=== PATIENT | female | born 1975 | race American Indian/Alaskan Native ===

== ENCOUNTER 2016-11-21 18:09 | Inpatient (IN) | payer BC ==
[2016-11-21 18:10] VITALS: BMI 20.5
[2016-11-21] MEDS ORDERED: Sodium Chloride 0.9% 1,000 ML IV STA (19:10)
[2016-11-21 20:07] LABS: HEMATOCRIT 29.8 % (36.0-48.0); MEAN CELL VOLUME 74.5 fL (80.0-105.0); MEAN CORPUSCULAR HEMOGLOBIN 25.3 pg (25.0-35.0); MEAN CORPUSCULAR HGB CONC 33.9 g/dl (31.0-37.0); MEAN PLATELET VOLUME 11.3 fl (7.0-11.0); PLATELET COUNT 159 10^3/uL (120.0-450.0); RED CELL DISTRIBUTION WIDTH 16.9 % (11.5-14.5)
[2016-11-21 20:12] LABS: ALB/GLOB RATIO 0.9 (1.1-1.8); ALKALINE PHOSPHATASE 64 U/L (38-133); ALT/SGPT 29 U/L (7-56); AST/SGOT 51 U/L (15-39); BILIRUBIN,TOTAL 0.5 mg/dL (0.2-1.3); BLOOD UREA NITROGEN 13 mg/dL (7-21); CARBON DIOXIDE 21 mmol/L (21-33); CHLORIDE 105 mmol/L (98-107); GFR AFRICAN-AMERICAN 55; GLUCOSE,RANDOM 93 mg/dL (70-110); POTASSIUM 3.7 mmol/L (3.6-5.0); SODIUM 139 mmol/L (132-148); TOTAL PROTEIN 8.4 g/dL (5.8-8.3)
[2016-11-21 20:17] LABS: ADD MANUAL DIFF? YES; WHITE BLOOD COUNT 2.4 10^3/ul (4.5-11.0)
[2016-11-21 20:19] LABS: CALCIUM 4.8 mg/dL (8.4-10.5)
[2016-11-21 20:48] LABS: BAND 4 % (0-2); EOSINOPHIL 2 % (0.0-3.0); NEUTROPHIL 36 % (50.0-70.0); PLATELET ESTIMATE NORMAL (NORMAL)
[2016-11-21 21:04] LABS: URINE BILIRUBIN NEGATIVE (NEGATIVE); URINE BLOOD NEGATIVE (NEGATIVE); URINE GLUCOSE (UA) NEGATIVE (NEGATIVE); URINE KETONE NEGATIVE (NEGATIVE); URINE LEUKOCYTE ESTERASE NEGATIVE Leu/uL (NEGATIVE); URINE PROTEIN 30 mg/dL (<30 mg/dL); URINE UROBILINOGEN 0.2 E.U./dL (<1 E.U./dL)
[2016-11-21 21:06] LABS: MAGNESIUM 1.7 mg/dL (1.7-2.2); PHOSPHOROUS 1.4 mg/dL (2.5-4.5); TROPONIN I < 0.01 ng/mL
[2016-11-21] MEDS ORDERED: Magnesium Sulfate 2 GM in Sodium Chloride 0.9% 100 ML IVPB ONE (21:08)
[2016-11-21] MEDS ORDERED: Potassium & Sodium Phosphate PO STA (21:08)
[2016-11-21 21:16] LABS: URINE APPEARANCE CLEAR (CLEAR); URINE COLOR YELLOW (YELLOW)
--- NOTE | 2016-11-21 21:21 | ED PDOC ---
Arrival/HPI - General Chief Complaint: Weakness/Neurological Deficit Time Seen by Provider: 11/21/16 19:09 Historian: Patient - History of Present Illness Narrative History of Present Illness (Text): 11/21/16 19:09 A 41 year old female, whose past medical history includes HIV with unknown cd4 count or viral load, and noncompliant HAART, presents to the emergency department complaining of bilateral hand spasms and diffuse body aches approximately 1 hour prior to arrival. Patient denies any fever, chills, nausea , vomiting, diarrhea, abdominal pain, urinary symptoms, chest pain, shortness of breath, cough or any other complaints. Patient denies any recent travel or changes in her medication. [place] [facility] [place] Time/Duration: 1 hour Symptom Course: Unchanged Quality: Other Context: Other Past Medical History - Provider Review Nursing Documentation Reviewed: Yes - Past History Past History: No Previous - Infectious Disease Hx of Infectious Diseases: None - Tetanus Immunization Tetanus Immunization: Up to Date, Unknown - Past Medical History Past Medical History: No Previous - Cardiac Hx Cardiac Disorders: No - Pulmonary Hx Respiratory Disorders: No - Neurological Hx Neurological Disorder: No - HEENT Hx HEENT Disorder: No - Renal Hx Renal Disorder: No - Endocrine/Metabolic Hx Endocrine Disorders: No - Hematological/Oncological Hx Blood Disorders: Yes - Integumentary Hx Dermatological Disorder: No - Musculoskeletal/Rheumatological Hx Musculoskeletal Disorders: No - Gastrointestinal Hx Gastrointestinal Disorders: No - Genitourinary/Gynecological Hx Genitourinary Disorders: No - Psychiatric Hx Psychophysiologic Disorder: No Hx Depression: No Hx Emotional Abuse: No Hx Physical Abuse: No Hx Substance Use: No - Past Surgical History Past Surgical History: No Previous - Surgical History Hx Section: Yes - Anesthesia Hx Anesthesia: No Hx Anesthesia Reactions: No - Suicidal Assessment Feels Threatened In Home Enviroment: No Family/Social History - Physician Review Nursing Documentation Reviewed: Yes Family/Social History: No Known Family HX Smoking Status: Never Smoked Hx Alcohol Use: No Hx Substance Use: No Hx Substance Use Treatment: No Allergies/Home Meds Allergies/Adverse Reactions: Allergies No Known Allergies Allergy (Verified 11/21/16 18:24) Home Medications: Home Meds Medication Instructions Recorded Confirmed Azithromycin [Zithromax] 600 mg PO .WEEKLY 11/21/16 11/21/16 Lopinavir/Ritonavir [Kaletra 11/21/16 100-25 mg Tablet] Review of Systems - Physician Review All systems were reviewed & negative as marked: Yes - Review of Systems Constitutional: absent: Fevers, Night Sweats Respiratory: absent: SOB, Cough Cardiovascular: absent: Chest Pain Gastrointestinal: absent: Abdominal Pain, Diarrhea, Nausea, Vomiting Genitourinary Female: absent: Dysuria, Frequency, Hematuria, Urine Output Changes Musculoskeletal: Myalgias (Diffuse body aches), Other (Bilateral hand spasms) Physical Exam Vital Signs Reviewed: Yes Vital Signs Temp Pulse Resp BP Pulse Ox 11/21/16 21:00 85 16 116/79 100 11/21/16 20:00 86 16 125/79 100 11/21/16 18:26 99.5 F 97 H 20 132/100 H 98 Temperature: Afebrile Blood Pressure: Hypertensive Pulse: Tachycardic Respiratory Rate: Normal Appearance: Positive for: Well-Appearing, Non-Toxic, Comfortable Pain Distress: None Mental Status: Positive for: Alert and Oriented X 3 - Systems Exam Head: Present: Atraumatic, Normocephalic Pupils: Present: PERRL Extroacular Muscles: Present: EOMI Conjunctiva: Present: Normal Mouth: Present: Moist Mucous Membranes, Other (Subjective numbness around mouth) Neck: Present: Normal Range of Motion Respiratory/Chest: Present: Clear to Auscultation, Good Air Exchange. No: Respiratory Distress, Accessory Muscle Use Cardiovascular: Present: Regular Rate and Rhythm, Normal S1, S2. No: Murmurs Abdomen: Present: Normal Bowel Sounds. No: Tenderness, Distention, Peritoneal Signs Back: Present: Normal Inspection Upper Extremity: Present: Normal ROM, NORMAL PULSES, Neurovascularly Intact, Other (Carpopedal spasms in bilateral hands). No: Cyanosis, Edema, Tenderness, Swelling, Erythema, Temperature Abnormalties, Deformity Lower Extremity: Present: Normal Inspection. No: Edema Neurological: Present: GCS=15, CN II-XII Intact, Speech Normal Skin: Present: Warm, Dry, Normal Color. No: Rashes Psychiatric: Present: Alert, Oriented x 3, Normal Insight, Normal Concentration Medical Decision Making ED Course and Treatment: 11/21/16 19:09 Impression: A 41 year old female with bilateral hand spasms and diffuse body aches. Plan: -- EKG -- Labs -- Urinalysis -- Ativan, Calcium gluconate, Magnesium sulfate, Neutra-Phos, IV fluids and Toradol -- Reassess and disposition Progress Notes: EKG shows NSR at 107 BPM with normal axis, QTc 512, IA interval normal. Interpreted by me. 11/21/16 21:00 Patient resting comfortably, in no acute distress. - Lab Interpretations Lab Results: 11/21/16 19:20 11/21/16 19:20 Lab Results 11/21/16 20:55: Ur Random Sodium 53, Ur Random Potassium 15.9 11/21/16 20:00: Urine Color Yellow, Urine Appearance Clear, Urine pH 6.0, Ur Specific [place] 1.010, Urine Protein 30 H, Urine Glucose (UA) Negative, Urine Ketones Negative, Urine Blood Negative, Urine Nitrate Negative, Urine Bilirubin Negative, Urine Urobilinogen 0.2, Ur Leukocyte Esterase Negative, Urine RBC 0 - 2, Urine WBC 1 - 3, Ur Epithelial Cells 1 - 3, Urine Bacteria Mod 11/21/16 19:20: Sodium 139, Potassium 3.7, Chloride 105, Carbon Dioxide 21, Anion Gap 17, BUN 13, Creatinine 1.3, Est GFR ( Amer) 55, Est GFR (Non- Af Amer) 45, Random Glucose 93, Calcium 4.8 L*, Phosphorus 1.4 L*, Magnesium 1.7 , Total Bilirubin 0.5, AST 51 H, ALT 29, Alkaline Phosphatase 64, Total Creatine Kinase 486 H, CK-MB (CK-2) 3.7 H, CK-MB (CK-2) % Cancelled, Troponin I < 0.01, Total Protein 8.4 H, Albumin 3.9, Globulin 4.5, Albumin/Globulin Ratio 0.9 L 11/21/16 19:20: WBC 2.4 L* D, RBC 4.00, Hgb 10.1 L, Hct 29.8 L, MCV 74.5 L, MCH 25.3, MCHC 33.9, RDW 16.9 H, Plt Count 159, MPV 11.3 H, Neutrophils % (Manual) 36 L, Band Neutrophils % 4 H, Lymphocytes % (Manual) 53 H, Monocytes % (Manual) 5, Eosinophils % (Manual) 2, Platelet Evaluation Normal I have reviewed the lab results: Yes - Medication Orders Current Medication Orders: Discontinued Medications Sodium Chloride (Sodium Chloride 0.9%) 1,000 mls @ 999 mls/hr IV .Q1H1M STA Stop: 11/21/16 20:10 Last Admin: 11/21/16 19:43 Dose: 999 mls/hr Calcium Gluconate 1,000 mg/ (Sodium Chloride) 110 mls @ 110 mls/hr IVPB ONCE ONE Stop: 11/21/16 21:53 Last Admin: 11/21/16 21:29 Dose: 110 mls/hr Comments: administered IV over 30 minutes as per verbal MD order Magnesium Sulfate 2 gm/ Sodium (Chloride) 104 mls @ 102 mls/hr IVPB ONCE ONE Stop: 11/21/16 22:09 Last Admin: 11/21/16 21:37 Dose: 102 mls/hr Ketorolac Tromethamine (Toradol) 30 mg IVP STAT STA Stop: 11/21/16 19:10 Last Admin: 11/21/16 20:04 Dose: 30 mg Re-Assess: MARK Pain Assessment Document 11/21/16 21:04 YP (Rec: 11/21/16 21:[address] [id number] Pain Reassessment Is this a pain reassessment? Yes Sleep Is patient sleeping during reassessment? No Presence of Pain Presence of Pain No Lorazepam (Ativan) 1 mg IVP STAT STA PRN Reason: Protocol Stop: 11/21/16 19:10 Last Admin: 11/21/16 20:04 Dose: 1 mg Potassium Phos/Sodium Phos (Neutra-Phos) 1 pkt PO STAT STA Stop: 11/21/16 21:09 Last Admin: 11/21/16 21:38 Dose: 1 pkt - Scribe Statement The provider has reviewed the documentation as recorded by the Davidibshayy Moralez Provider Scribe Attestation: All medical record entries made by the Scribe were at my direction and personally dictated by me. I have reviewed the chart and agree that the record accurately reflects my personal performance of the history, physical exam, medical decision making, and the department course for this patient. I have also personally directed, reviewed, and agree with the discharge instructions and disposition. Disposition/Present on Arrival - Present on Arrival Any Indicators Present on Arrival: No History of DVT/PE: No History of Uncontrolled Diabetes: No Urinary Catheter: No History of Decub. Ulcer: No History Surgical Site Infection Following: None - Disposition Have Diagnosis and Disposition been Completed?: Yes Diagnosis: Hypocalcemia, Hypophosphatemia, HIV (human immunodeficiency virus infection) Disposition: HOSPITALIZED Disposition Time: 21:45 Condition: FAIR
[2016-11-21 21:49] LABS: URINE BACTERIA MOD (NEG); URINE RBC 0 - 2 /hpf (0-2)
[2016-11-22] MEDS: Calcium Gluconate 1,000 MG in Sodium Chloride 0.45% 1,000 ML IV SCH ×2 (01:14→20:45)
--- NOTE | 2016-11-22 02:23 | CON ---
DATE: 11/21/2016 LOCATION: Room 265. HISTORY OF PRESENT ILLNESS: This is a 41-year-old female with known HIV disease and presenting here with sudden onset of generalized body weakness with supervening bilateral upper and lower extremity s pasms and polymyalgias and was evaluated to have symptomatic hypocalcemia and is now being referred f or endocrine evaluation and management. PAST MEDICAL HISTORY: As mentioned above, history of HIV disease, previously on antiretroviral medic ation, but apparently was lost to medical followup with no recent lab testing or medical checkups. FAMILY HISTORY: Positive for diabetes and hypertension. SOCIAL HISTORY: The patient has supportive family. No known substance use. REVIEW OF SYSTEMS: As mentioned above, admits to generalized body weakness with episodic dizziness a nd lightheadedness, worse on the day of admission. Also, admits to bifrontal headaches and upper and lower extremity paresthesias with supervening spasms, worse in both hands and forearms as noted. Al so, admits to diffuse polymyalgias with painful lower extremity paresthesias, again, worse in the las t few days prior to admission. No chest pains or palpitations or PNDs. Also, admits to sudden onset of shortness of breath, just on the day of admission. Her oral intake is variable with nausea, dysp epsia and habitual constipation. PHYSICAL EXAMINATION: GENERAL: This is an average built female in no apparent distress. VITAL SIGNS: Blood pressure 140/80, pulse of 70 beats per minute and regular, temperature 98, respir ations 20. Height is 5 feet 4 inches, weight is 120 pounds. HEENT: Head normocephalic. Eyes anicteric with pink conjunctivae. Fundoscopy not possible at this time. Ears, nose and throat otherwise normal. NECK: Supple. Thyroid gland is normal size. No carotid bruits or any cervical adenopathy. CARDIOPULMONARY: Revealed an adynamic precordium. S1, S2 is rapid and regular. LUNGS: Show scattered rhonchi. ABDOMEN: Flat, soft with positive bowel sounds. EXTREMITIES: No peripheral edema. Pulses are +2 bilaterally. NEUROLOGIC: There is also a positive Chvostek's sign noted. LABORATORY DATA: Chemistry showed a BUN of 13, sodium 139, potassium 3.7, chloride 105, CO2 of 21, g lucose 93 and creatinine 1.3. Calcium is 4.8 with a phosphorus of 1.4, magnesium of 1.7 and albumin of 3.9. ASSESSMENT: This is a 41-year-old female with symptomatic hypocalcemia and associated constitutional manifestations with neuromuscular irritability and carpopedal spasms and associated EKG findings of the prolonged QT interval as noted in the Emergency Room and is now being referred for endocrine eval uation and management. The possibility of whether we are dealing with a parathyroid versus non-parat hyroid etiology has to be ascertained at this time. There is no prior surgical resection noted histo rically otherwise. The possibility of an autoimmune polyglandular syndrome is quite remote, as the p atalbert has had no prior historical manifestations otherwise. PLAN OF MANAGEMENT: We will continue the calcium gluconate infusion as as fluids with half nor mal saline at 500 mL containing 1 amp of calcium gluconate to run at 100 mL per hour as ordered start ing tonight. We will readjust the IV fluids depending on the serial calcium and magnesium and phosph orus levels to be obtained. The baseline hormonal profile will be obtained at this time with a parat hyroid intact level and an ionized calcium, serum phosphorus and magnesium levels. A TSH and calcito berlin level will also be sent out. We will follow and advise accordingly. Lorrie Fernandes MD cc: [id number] TT: 11/22/2016 02:23:21 Confirmation # [id number] Dictation # [id number]
--- NOTE | 2016-11-22 04:50 | CP.PCM.HP ---
<Roscoe Juárez - Last Filed: 11/22/16 04:45> History of Present Illness - History of Present Illness History of Present Illness: Roscoe Juárez D.O. PGY-1, Internal Medicine Resident, Night Float Admission CC: tingling around mouth, hands, and feet for 1 day 41 year old female with a PMH of HIV on ART medication but not compliant who [place] [facility] [place] with complaints of tingling around her mouth, hands , and feet. Patient is seen with at bedside. Patient states that she was working earlier today and began to have symptoms first in the feet, then it started to spread. Patient denies ever having this again but states that lately she has complained of some tingling and numbness in her extremities.. Patient felt numbness and tingling all over and it went up to her head and her mouth. Patient states that she felt like she couldn't open her eyes and her hands were clamped down in a point. Denies any dizziness, diarrhea , constipation, dysuria, palpitations, shortness of breath, headache, weakness, or any other symptoms. Patient did not note any alleviating or aggravating factors. PMD: Dr. Silva PMH: as above PSH: 2 C-sections SH: denies smoking, alcohol, or drug use, works at the [employer] FH: denies Meds: reviewed but not complete, patient will have family bring full list Allergies: NKA Present on Admission - Present on Admission Any Indicators Present on Admission: No Review of Systems - Constitutional Constitutional: absent: Anorexia, Chills - EENT Eyes: absent: Blind Spots, Blurred Vision Ears: absent: Decreased Hearing, Ear Discharge Nose/Mouth/Throat: absent: Epistaxis, Nasal Congestion - Cardiovascular Cardiovascular: absent: Chest Pain, Diaphoresis, Leg Edema - Respiratory Respiratory: absent: Cough, Dyspnea - Gastrointestinal Gastrointestinal: absent: Abdominal Pain, Nausea, Vomiting - Genitourinary Genitourinary: absent: Dysuria, Hematuria - Musculoskeletal Musculoskeletal: absent: Abnormal Gait, Back Pain - Integumentary Integumentary: absent: Pruritus, Rash - Neurological Neurological: Numbness, Paresthesias, Tingling - Endocrine Endocrine: Polyuria Past Patient History - Infectious Disease Hx of Infectious Diseases: None - Tetanus Immunizations Tetanus Immunization: Up to Date, Unknown - Past Social History Smoking Status: Never Smoked - CARDIAC Hx Cardiac Disorders: No - PULMONARY Hx Respiratory Disorders: No - NEUROLOGICAL Hx Neurological Disorder: No - HEENT Hx HEENT Problems: No - RENAL Hx Chronic Kidney Disease: No - ENDOCRINE/METABOLIC Hx Endocrine Disorders: No - HEMATOLOGICAL/ONCOLOGICAL Hx Blood Disorders: Yes Hx AIDS: Yes (dx HIV 1998) - INTEGUMENTARY Hx Dermatological Problems: No - MUSCULOSKELETAL/RHEUMATOLOGICAL Hx Musculoskeletal Disorders: No Hx Falls: No - GASTROINTESTINAL Hx Gastrointestinal Disorders: No - GENITOURINARY/GYNECOLOGICAL Hx Genitourinary Disorders: No - PSYCHIATRIC Hx Psychophysiologic Disorder: No Hx Depression: No Hx Emotional Abuse: No Hx Physical Abuse: No Hx Substance Use: No - SURGICAL HISTORY Hx Surgeries: Yes (C- Section x 2) - ANESTHESIA Hx Anesthesia: No Hx Anesthesia Reactions: No Meds Home Medications: Home Medication List Medication Instructions Recorded Confirmed Type Atovaquone [Mepron] 750 mg PO BID #30 packet 11/23/16 Rx Calcium Carbonate/Vitamin D 2 tab PO BID tab 11/23/16 Rx [Oscal-D 250 mg-125 Units Tab] Dolutegravir Sodium [Tivicay] 50 mg PO DAILY #30 11/23/16 Rx Home Med 1 unit PO DAILY ea 11/23/16 Rx Lopinavir/Ritonavir [Kaletra 2 tab PO BID #30 11/23/16 Rx 200-50 mg] Allergies/Adverse Reactions: Allergies Allergy/AdvReac Type Severity Reaction Status Date / Time No Known Allergies Allergy Verified 11/21/16 18:24 Physical Exam - Constitutional Additional comments: well developed, skinny female resting in bed in no acute distress, at bedside - Head Exam Head Exam: ATRAUMATIC, NORMOCEPHALIC - Eye Exam Eye Exam: EOMI, PERRL. absent: Conjunctival injection, Scleral icterus - ENT Exam ENT Exam: Mucous Membranes Moist, Normal Oropharynx - Neck Exam Additional comments: soft, supple, no LAD, negative Chvostek's sign - Respiratory Exam Respiratory Exam: Clear to Auscultation Bilateral. absent: Rales, Rhonchi, Wheezes - Cardiovascular Exam Cardiovascular Exam: RRR, +S1, +S2. absent: Gallop, Rubs, Systolic Murmur - GI/Abdominal Exam GI & Abdominal Exam: Normal Bowel Sounds, Soft. absent: Tenderness - Extremities Exam Extremities exam: Positive for: normal capillary refill, pedal pulses present. Negative for: calf tenderness, joint swelling, pedal edema, tenderness Additional comments: paresthesias resolved - Back Exam Back exam: absent: muscle spasm, paraspinal tenderness, tenderness, vertebral tenderness - Neurological Exam Neurological exam: Alert, CN II-XII Intact, Oriented x3 Additional comments: no muscle weakness, fluid and coherent speech - Skin Skin Exam: Dry, Intact, Warm Results - Vital Signs Recent Vital Signs: Last Vital Signs Temp 98.2 F 11/22/16 00:02 Pulse 76 11/22/16 00:02 Resp 18 11/22/16 00:02 BP 103/60 11/22/16 00:02 Pulse Ox 100 11/21/16 23:00 - Labs Result Diagrams: 11/21/16 19:20 11/21/16 19:20 Labs: Laboratory Results - last 24 hr 11/21/16 11/21/16 22:55 22:55 Ur Random Creatinine 130 Ur Random Calcium < 1.0 Assessment & Plan - Assessment and Plan (Free Text) Assessment: 41 year old female with a PMH of HIV on ART medication but not compliant who presents with complaints of tingling around her mouth, hands, and feet. Plan: 1. Marked hypoclacemia Placed in obs in telemetry EKG shows prolonged QT Replenished with calcium gluconate, will recheck and follow Multiple etiologies, vitamin D deficiency, hypoparathyroidism, urinary loss, HIV medication side effect, not hypoalbuminemic Denies any head/neck radiation or neck surgery Consulted endocrinology Will check PTH, vitamin D, urinary calcium, ionized calcium Holding azithromycin due to prolonged QT Recheck EKG in the AM 2. HIV Consulted ID Enforced compliance to patient, verbalized understanding and agreement that compliance is of utmost importance Recently had labs drawn for viral load and CD4 last so will hold from repeating Continued home ART 3. Anemia - microcytic Asymptomatic, no active bleeding, hemodynamically intact Ordered iron, tibc, and ferritin DVT ppx: SCDs Patient was seen and examined and case was discussed at length with attending physician. - Date & Time Date: 11/22/16 Time: 00:01 <Lanette Mays - Last Filed: 11/25/16 18:48> Results - Vital Signs Recent Vital Signs: Last Vital Signs Temp 98.1 F 11/23/16 12:00 Pulse 84 11/23/16 12:00 Resp 18 11/23/16 12:00 BP 135/96 H 11/23/16 12:00 Pulse Ox 99 11/23/16 05:57 - Labs Result Diagrams: 11/23/16 05:00 11/23/16 05:00
[2016-11-22] MEDS: Meropenem 1g/NS 100mL IVPB 1 GM/100 ML PIGGYBACK IVPB SCH ×2 (06:15→14:21)
[2016-11-22 07:10] LABS: ADD MANUAL DIFF? NO
[2016-11-22 07:13] LABS: BASO # 0.01 K/mm3 (0.0-2.0); BASO % 0.3 % (0.0-3.0); EOS # 0.2 (0.0-0.7); EOS % 6.4 % (1.5-5.0); LYMPH # 1.3 (1.2-3.4); LYMPH % 42.2 % (22.0-35.0); MEAN CELL VOLUME 74.7 fL (80.0-105.0); MEAN CORPUSCULAR HEMOGLOBIN 24.3 pg (25.0-35.0); MEAN CORPUSCULAR HGB CONC 32.6 g/dl (31.0-37.0); MEAN PLATELET VOLUME 10.5 fl (7.0-11.0); MONO # 0.2 (0.1-0.6); MONO % 7.1 % (1.0-6.0); PLATELET COUNT 141 10^3/uL (120.0-450.0); RED CELL DISTRIBUTION WIDTH 17.1 % (11.5-14.5)
[2016-11-22] MEDS ORDERED: Potassium Phosphate 3 mmol/ml Inj IV STA (07:26)
[2016-11-22 07:33] LABS: ALB/GLOB RATIO 0.8 (1.1-1.8); BILIRUBIN,TOTAL 0.4 mg/dL (0.2-1.3); MAGNESIUM 2.5 mg/dL (1.7-2.2); PHOSPHOROUS 2.9 mg/dL (2.5-4.5); POTASSIUM 3.2 mmol/L (3.6-5.0); TOTAL PROTEIN 7.7 g/dL (5.8-8.3)
[2016-11-22 07:51] LABS: CALCIUM 6.5 mg/dL (8.4-10.5)
[2016-11-22] MEDS ORDERED: Potassium Phosphate 30 MMOLE in Sodium Chloride 0.9% 500 ML IVPB ONE (08:00)
[2016-11-22] MEDS: Lopinavir/Ritonavir Tab PO SCH ×2 (09:00→17:49)
[2016-11-22 09:33] LABS: IRON 17 ug/dL (45-180)
[2016-11-22] MEDS ORDERED: Calcium-Vit D 250 mg-125 Units Tab UD PO SCH (10:00)
--- NOTE | 2016-11-22 10:43 | CP.PCM.PN ---
<Audra Lyons - Last Filed: 11/22/16 10:56> Subjective - Date & Time of Evaluation Date of Evaluation: 11/22/16 Time of Evaluation: 10:38 - Subjective Subjective: HOSPITALIST PROGRESS NOTE Pt is seen and examined at bedside. She states that her tingling has improved. Denies having any CP, SOB, abd pain, N/V/D/C, increased urinary frequency. Patient states that she was diagnosed with HIV 15 yrs ago. She contracted the virus through sexual contact. Patient states that her CD4 count is low and she is currently on prophylactic antibiotics. PMD is Dr. Angi Bourne in [place]. Objective - Vital Signs/Intake and Output Vital Signs (last 24 hours): Temp Pulse Resp BP Pulse Ox 98.2 F 69 20 93/55 L 100 11/22/16 04:00 11/22/16 06:46 11/22/16 04:00 11/22/16 04:00 11/21/16 23:00 Intake and Output: 11/22/16 11/22/16 06:59 18:59 Intake Total 600 Output Total 1 Balance 599 - Medications Medications: Current Medications Calcium/Vitamin D (Oscal-D 250 Mg-125 Units Tab) 1 tab PO DAILY [facility] [place] Last Admin: 11/22/16 09:00 Dose: 1 tab Home Med (Home Med) 1 unit PO DAILY [facility] [place] Meropenem 1g/NS 100mL IVPB (Meropenem 1g/Ns 100ml Ivpb) 1 gm in 100 mls @ 100 mls/hr IVPB Q8 [facility] [place] PRN Reason: Protocol Stop: 12/04/16 06:01 Last Admin: 11/22/16 06:15 Dose: 100 mls/hr Calcium Gluconate 1,000 mg/ (Sodium Chloride) 1,010 mls @ 100 mls/hr IV .Q10H6M [facility] Last Admin: 11/22/16 01:14 Dose: 100 mls/hr Potassium Phosphate 30 mmole/ (Sodium Chloride) 510 mls @ 63.75 mls/hr IVPB ONCE ONE Stop: 11/22/16 15:59 Last Admin: 11/22/16 08:44 Dose: 63.75 mls/hr Lopinavir/Ritonavir (Kaletra 200-50 Mg) 2 cap PO BID [facility] [place] Last Admin: 11/22/16 09:00 Dose: 2 cap - Labs Labs: 11/22/16 07:00 11/22/16 07:00 - Constitutional Appears: Non-toxic, No Acute Distress - Head Exam Head Exam: ATRAUMATIC - ENT Exam ENT Exam: Mucous Membranes Moist - Respiratory Exam Respiratory Exam: Clear to Ausculation Bilateral, NORMAL BREATHING PATTERN. absent: Accessory Muscle Use, Rales, Rhonchi, Wheezes - Cardiovascular Exam Cardiovascular Exam: REGULAR RHYTHM, +S1, +S2. absent: Gallop, Rubs, Murmur - GI/Abdominal Exam GI & Abdominal Exam: Soft, Normal Bowel Sounds. absent: Distended, Firm, Guarding, Rigid - Neurological Exam Neurological Exam: Alert, Awake, Oriented x3 - Psychiatric Exam Psychiatric exam: Normal Affect, Normal Mood - Skin Skin Exam: Dry, Intact, Normal Color, Warm Assessment and Plan - Assessment and Plan (Free Text) Assessment: 41 year old female with a PMH of HIV on ART medication but not compliant, on prophylactic antibodies zithromax and bactrim is admitted for electrolyte abnormalities including hypocalcemia and hypophosphatemia. Plan: 1. Marked hypocalcemia Ca this morning is 6.5 Placed in obs in telemetry Endo, Dr. Fernandes is consulted Initial EKh shoed QTc prolongation at 512. repeat EKG showed QTc interval at 455. No U waves noted NS with 1 amp of calcium gluconate at 100 cc Denies any head/neck radiation or neck surgery Holding azithromycin due to prolonged QT Will check PTH, ionized Ca, calcitonin, cortisol Urine Ca is <1.0 Will order a baseline echo 2. HIV Consulted ID Enforced compliance to patient, verbalized understanding and agreement that compliance is of utmost importance Continued home ART Pt started on meropenem blood, urine and sputum cultures are ordered CD4 count and viral load is ordered 3. Anemia - microcytic Asymptomatic, no active bleeding, hemodynamically intact Iron studies are as follows: Fe 17 (low), TIBC 317 (normal), % sat 5 (low). Ferritin is pending DVT ppx: SCDs <Alberto Adorno - Last Filed: 11/22/16 14:41> Objective - Vital Signs/Intake and Output Vital Signs (last 24 hours): Temp Pulse Resp BP Pulse Ox 97 F L 80 20 119/64 100 11/22/16 12:00 11/22/16 12:00 11/22/16 12:00 11/22/16 12:00 11/21/16 23:00 Intake and Output: 11/22/16 11/22/16 06:59 18:59 Intake Total 600 540 Output Total 1 Balance 599 540 - Medications Medications: Current Medications Calcium/Vitamin D (Oscal-D 250 Mg-125 Units Tab) 1 tab PO DAILY [facility] [place] Last Admin: 11/22/16 09:00 Dose: 1 tab Home Med (Home Med) 1 unit PO DAILY [facility] [place] Meropenem 1g/NS 100mL IVPB (Meropenem 1g/Ns 100ml Ivpb) 1 gm in 100 mls @ 100 mls/hr IVPB Q8 [facility] PRN Reason: Protocol Stop: 12/04/16 06:01 Last Admin: 11/22/16 06:15 Dose: 100 mls/hr Calcium Gluconate 1,000 mg/ (Sodium Chloride) 1,010 mls @ 100 mls/hr IV .Q10H6M [facility] [place] Last Admin: 11/22/16 01:14 Dose: 100 mls/hr Potassium Phosphate 30 mmole/ (Sodium Chloride) 510 mls @ 63.75 mls/hr IVPB ONCE ONE Stop: 11/22/16 15:59 Last Admin: 11/22/16 08:44 Dose: 63.75 mls/hr Lopinavir/Ritonavir (Kaletra 200-50 Mg) 2 cap PO BID [facility] [place] Last Admin: 11/22/16 09:00 Dose: 2 cap - Labs Labs: 11/22/16 07:00 11/22/16 07:00 Attending/Attestation - Attestation I have personally seen and examined this patient.: Yes I have fully participated in the care of the patient.: Yes I have reviewed all pertinent clinical information, including history, physical exam and plan: Yes Notes (Text): 11/22/16 14:35 Attending note: Patient seen and examined with the resident. Patient is a 41-year-old female with a history of HIV over 15 years/sexually acquired on PCP prophylaxis noncompliance with follow-up as admitted with tingling and numbnes. The patient was found to have profoundly hypocalcemic, hypophosphatemic and hypomagnesemic. Possibly secondary to poor by mouth intake. Currently denies any GI or urinary loss . IV calcium, magnesium, phosphorus supplementation given . Monitor closely in telemetry. EKG did not show any QT prolongation . Endocrinology evaluation with Dr. Fernandes appreciated. Workup in progress . Upon discharge patient will follow-up with Dr. Bourne. Medication compliance insisted. ID evaluation requested. Patient is clinically stable. Tolerating diet. Dietitian evaluation ordered. Diagnosis and treatment plan explained in detail.
--- NOTE | 2016-11-22 15:16 | PN ---
DATE: 11/22/2016 ROOM: 265 This is a 41-year-old female with known history of HIV, on antiretroviral medications, who presents h ere with symptomatic hypocalcemia and associated carpopedal spasms and neuromuscular irritability and is now being followed closely for metabolic management. Her latest chemistries showed a BUN of 11, sodium 141, potassium 3.2, chloride 111, CO2 22, glucose 7 9 and creatinine 1.3. Her calcium level now is 6.5 with an albumin level of 3.4 and a corrected calc ium of 7.1 mg/dL. The thyroid study showed a TSH of 2.70 and the parathyroid hormone levels are pend ing at this time as noted. She has ongoing calcium gluconate infusion as given initially, and at this time will continue the jerzy cium gluconate infusion with 1 amp of calcium gluconate in 1000 mL of half normal saline running at 1 00 mL per hour as ordered. Will also increase the oral calcium replacement to 2 tablets b.i.d. as or dered. Will titrate incrementally as indicated to optimize metabolic control. We have available syn thetic parathyroid hormone preparations which are extremely expensive, formidable to say the least, a nd so is not available in our hospital formulary, nor is it even approved by insurance companies on t he outside. Will obtain serial chemistries and supplement accordingly as needed. Will follow and ad vise accordingly. Lorrie Fenrandes MD cc: [id number] TT: 11/22/2016 15:16:24 Confirmation # [id number] Dictation # [id number] mn
--- NOTE | 2016-11-22 17:46 | CP.PCM.CON ---
History of Present Illness - History of Present Illness History of Present Illness: 41 year old female with PMH of HIV/AIDS on ART (patient has intermittent compliance, and as per patient she knows she has low CD4 count but does not recall the last one which apparently was taken 3 months ago; her lowest CD4 count has been 12), S/P Caesarian section came in to [facility] because of tingling of the hands, feet, around the mouth as well as numbness of her extremities. In the ED, she is noted to be hypocalcemic as well as with bradycardia. She is now being monitored in telemetry for this and being treated for hypocalcemia. Infectious diseases consult is requested for her HIV. The patient denies headache or dizziness, no chest pain, no SOB, no sore throat, no nausea or vomiting, no abdominal pain, no diarrhea, no dysuria, no dysphagia or odynophagia. Review of Systems - Review of Systems All systems: reviewed and no additional remarkable complaints except (as per HPI ) Past Patient History - Infectious Disease Hx of Infectious Diseases: None - Tetanus Immunizations Tetanus Immunization: Up to Date, Unknown - Past Social History Smoking Status: Never Smoked - CARDIAC Hx Cardiac Disorders: No - PULMONARY Hx Respiratory Disorders: No - NEUROLOGICAL Hx Neurological Disorder: No - HEENT Hx HEENT Problems: No - RENAL Hx Chronic Kidney Disease: No - ENDOCRINE/METABOLIC Hx Endocrine Disorders: No - HEMATOLOGICAL/ONCOLOGICAL Hx Blood Disorders: Yes Hx AIDS: Yes (dx HIV 1998) - INTEGUMENTARY Hx Dermatological Problems: No - MUSCULOSKELETAL/RHEUMATOLOGICAL Hx Musculoskeletal Disorders: No Hx Falls: No - GASTROINTESTINAL Hx Gastrointestinal Disorders: No - GENITOURINARY/GYNECOLOGICAL Hx Genitourinary Disorders: No - PSYCHIATRIC Hx Psychophysiologic Disorder: No Hx Depression: No Hx Emotional Abuse: No Hx Physical Abuse: No Hx Substance Use: No - SURGICAL HISTORY Hx Surgeries: Yes (C- Section x 2) - ANESTHESIA Hx Anesthesia: No Hx Anesthesia Reactions: No Meds Allergies/Adverse Reactions: Allergies Allergy/AdvReac Type Severity Reaction Status Date / Time No Known Allergies Allergy Verified 11/21/16 18:24 - Medications Medications: Current Medications Calcium/Vitamin D (Oscal-D 250 Mg-125 Units Tab) 1 tab PO DAILY [facility] Home Med (Home Med) 1 unit PO DAILY [facility] Meropenem 1g/NS 100mL IVPB (Meropenem 1g/Ns 100ml Ivpb) 1 gm in 100 mls @ 100 mls/hr IVPB Q8 [facility] PRN Reason: Protocol Stop: 12/04/16 06:01 Last Admin: 11/22/16 06:15 Dose: 100 mls/hr Calcium Gluconate 1,000 mg/ (Sodium Chloride) 1,010 mls @ 100 mls/hr IV .Q10H6M [facility] Last Admin: 11/22/16 01:14 Dose: 100 mls/hr Potassium Phosphate 30 mmole/ (Sodium Chloride) 510 mls @ 63.75 mls/hr IVPB ONCE ONE Stop: 11/22/16 15:59 Lopinavir/Ritonavir (Kaletra 200-50 Mg) 2 cap PO BID [facility] LICENSE OF [facility] Physical Exam - Constitutional Appears: Non-toxic, No Acute Distress - Head Exam Head Exam: NORMAL INSPECTION - ENT Exam ENT Exam: Mucous Membranes Moist Additional comments: mild oral thrush - Neck Exam Neck exam: Negative for: Lymphadenopathy, Meningismus - Respiratory Exam Respiratory Exam: Decreased Breath Sounds - Cardiovascular Exam Cardiovascular Exam: +S1, +S2 - GI/Abdominal Exam GI & Abdominal Exam: Soft. absent: Tenderness Results - Vital Signs Recent Vital Signs: Last Vital Signs Temp 98.2 F 11/22/16 04:00 Pulse 69 11/22/16 06:46 Resp 20 11/22/16 04:00 BP 93/55 L 11/22/16 04:00 Pulse Ox 100 11/21/16 23:00 - Labs Result Diagrams: 11/22/16 07:00 11/22/16 07:00 Labs: Laboratory Results - last 24 hr 11/21/16 11/21/16 11/22/16 22:55 22:55 07:00 WBC 3.0 L D RBC 4.15 Hgb 10.1 L Hct 31.0 L MCV 74.7 L MCH 24.3 L MCHC 32.6 RDW 17.1 H Plt Count 141 MPV 10.5 Gran % 44.0 L Lymph % (Auto) 42.2 H Emanuel % (Auto) 7.1 H Eos % (Auto) 6.4 H Baso % (Auto) 0.3 Gran # 1.30 L Lymph # 1.3 Emanuel # 0.2 Eos # 0.2 Baso # 0.01 Sodium Potassium Chloride Carbon Dioxide Anion Gap BUN Creatinine Est GFR ( Amer) Est GFR (Non-Af Amer) Random Glucose Calcium Phosphorus Magnesium Total Bilirubin AST ALT Alkaline Phosphatase Total Protein Albumin Globulin Albumin/Globulin Ratio TSH 3rd Generation Ur Random Creatinine 130 Ur Random Calcium < 1.0 11/22/16 11/22/16 07:00 07:00 WBC RBC Hgb Hct MCV MCH MCHC RDW Plt Count MPV Gran % Lymph % (Auto) Emanuel % (Auto) Eos % (Auto) Baso % (Auto) Gran # Lymph # Emanuel # Eos # Baso # Sodium 141 Potassium 3.2 L Chloride 111 H Carbon Dioxide 22 Anion Gap 11 BUN 11 Creatinine 1.3 Est GFR ( Amer) 55 Est GFR (Non-Af Amer) 45 Random Glucose 79 Calcium 6.5 L* Phosphorus 2.9 Magnesium 2.5 H Total Bilirubin 0.4 AST 69 H ALT 34 Alkaline Phosphatase 61 Total Protein 7.7 Albumin 3.4 Globulin 4.2 Albumin/Globulin Ratio 0.8 L TSH 3rd Generation 2.70 Ur Random Creatinine Ur Random Calcium Assessment & Plan - Assessment and Plan (Free Text) Plan: Assessment HIV/AIDS on combination antiretroviral therapy, with intermittent compliance Hypocalcemia, etiology to be determined S/P Caesarian section Plan Continue Dolutegravir and Kaletra; continue PCP Prophylaxis with Mepron (would avoid Bactrim for now because of the renal failure and the leukopenia); will d/ c WINTER prophylaxis with Zithromax for now because of the hypocalcemia and the risk for further prolongation of the QT interval with Zithromax Will monitor clinically
[2016-11-22] MEDS: Atovaquone 750 mg/5 ml Susp UD PO SCH (17:49)
[2016-11-22] MEDS: Nystatin 100,000 Units/ml Oral Susp 5 ml UD PO SCH ×2 (17:49→21:43)
[2016-11-22] MEDS: Calcium-Vit D 250 mg-125 Units Tab UD PO SCH (17:51)
[2016-11-22 17:59] LABS: CORTISOL AM 11.1 ug/dL (4.46-22.7)
--- NOTE | 2016-11-22 19:05 | CARD ---
APPROVED REPORT EXAM: Two-dimensional and M-mode echocardiogram with Doppler and color Doppler. INDICATION TACHY 2D DIMENSIONS Left Atrium (2D)3.3 (1.6-4.0cm)IVSd1.0 (0.7-1.1cm) LVDd4.6 (3.9-5.9cm)PWd1.0 (0.7-1.1cm) LVDs3.4 (2.5-4.0cm)FS (%) 25.8 % LVEF (%)50.8 (>50%) M-Mode DIMENSIONS Aortic Root2.00 (2.2-3.7cm)Aortic Cusp Exc.1.50 (1.5-2.0cm) Aortic Valve AoV Peak Dvbafrqb086.0cm/Shante Peak GR.8mmHg Mitral Valve MV E Rzsjzbgq31.9cm/sMV A Spwnctya29.1cm/sE/A ratio1.8 TDI E/Lateral E'0.0E/Medial E'0.0 Tricuspid Valve TR Peak [id number]/sRAP [id number] Peak Gr.12mmHg [id number] LEFT VENTRICLE The left ventricle is normal size. There is normal left ventricular wall thickness. Left ventricle ejection fraction is borderline. There is normal LV segmental wall motion. The left ventricular diastolic function is normal. RIGHT VENTRICLE The right ventricle is normal size. There is normal right ventricular wall thickness. The right ventricular systolic function is normal. ATRIA The left atrium size is normal. The right atrium size is normal. AORTIC VALVE The aortic valve is normal in structure. No aortic regurgitation is present. MITRAL VALVE The mitral valve is mildly thickened. There is no mitral valve regurgitation noted. TRICUSPID VALVE There is no pulmonary hypertension. GREAT VESSELS The aortic root is normal in size. The IVC is normal in size and collapses >50% with inspiration. PERICARDIAL EFFUSION There is no pericardial effusion. <Conclusion> The left ventricle is normal size. There is normal left ventricular wall thickness. Left ventricle ejection fraction is borderline. There is normal LV segmental wall motion.
--- NOTE | 2016-11-22 20:53 | CARD ---
APPROVED REPORT EKG Measurement Heart [id number] [place] [id number] <Conclusion> Sinus rhythm with 1st degree AV block Otherwise normal ECG
--- NOTE | 2016-11-22 21:00 | CARD ---
APPROVED REPORT EKG Measurement Heart [id number] [place] [id number] <Conclusion> Normal sinus rhythm Nonspecific T wave abnormality Abnormal ECG
--- NOTE | 2016-11-22 22:54 | CARD ---
APPROVED REPORT EKG Measurement Heart [id number] [place] [id number] [id number] <Conclusion> Sinus tachycardia Minimal voltage criteria for LVH, may be normal variant Nonspecific ST and T wave abnormality Abnormal ECG
[2016-11-23] MEDS: Calcium Gluconate 1,000 MG in Sodium Chloride 0.45% 1,000 ML IV SCH (02:20)
[2016-11-23 05:58] VITALS: O2SAT 99
[2016-11-23 06:19] LABS: ADD MANUAL DIFF? NO
[2016-11-23 06:36] LABS: ALB/GLOB RATIO 0.8 (1.1-1.8); ALKALINE PHOSPHATASE 56 U/L (38-133); ALT/SGPT 46 U/L (7-56); AST/SGOT 81 U/L (15-39); BILIRUBIN,TOTAL 0.8 mg/dL (0.2-1.3); BLOOD UREA NITROGEN 8 mg/dL (7-21); CALCIUM 8.2 mg/dL (8.4-10.5); CARBON DIOXIDE 21 mmol/L (21-33); CHLORIDE 110 mmol/L (98-107); GFR AFRICAN-AMERICAN > 60; GLUCOSE,RANDOM 83 mg/dL (70-110); MAGNESIUM 1.8 mg/dL (1.7-2.2); PHOSPHOROUS 3.2 mg/dL (2.5-4.5); POTASSIUM 4.1 mmol/L (3.6-5.0); SODIUM 141 mmol/L (132-148); TOTAL PROTEIN 7.6 g/dL (5.8-8.3)
[2016-11-23 06:52] LABS: BASO # 0.01 K/mm3 (0.0-2.0); BASO % 0.2 % (0.0-3.0); EOS # 0.3 (0.0-0.7); EOS % 7.8 % (1.5-5.0); GRAN # 2.17 (1.4-6.5); GRAN % 53.2 % (50.0-68.0); HEMATOCRIT 29.5 % (36.0-48.0); LYMPH # 1.3 (1.2-3.4); LYMPH % 32.4 % (22.0-35.0); MEAN CELL VOLUME 74.5 fL (80.0-105.0); MEAN CORPUSCULAR HGB CONC 33.6 g/dl (31.0-37.0); MEAN PLATELET VOLUME 11.2 fl (7.0-11.0); MONO # 0.3 (0.1-0.6); MONO % 6.4 % (1.0-6.0); PLATELET COUNT 152 10^3/uL (120.0-450.0); RED CELL DISTRIBUTION WIDTH 17.2 % (11.5-14.5); WHITE BLOOD COUNT 4.1 10^3/ul (4.5-11.0)
[2016-11-23] MEDS: Nystatin 100,000 Units/ml Oral Susp 5 ml UD PO SCH ×2 (09:47→09:56)
[2016-11-23] MEDS: Lopinavir/Ritonavir Tab PO SCH (09:47)
[2016-11-23] MEDS: Atovaquone 750 mg/5 ml Susp UD PO SCH (09:47)
[2016-11-23] MEDS: Calcium-Vit D 250 mg-125 Units Tab UD PO SCH (09:48)
[2016-11-23 10:05] LABS: % CD16+CD56+(NK CELL) 10 Percent (4-25); % CD19 (B CELL) 21 Percent (6-29); % CD3 (MATURE T CELL) 68 Percent (57-85); ABSOLUTE CD16+CD56+CELLS 125 Cells/mcL (70-760)
[2016-11-23 12:18] VITALS: BP 135/96; PULSE 84; RESP 18; TEMP 98.1
--- NOTE | 2016-11-23 12:49 | PN ---
DATE: 11/23/2016 ROOM: 265 This is a 41-year-old female with known history of HIV disease, currently on antiretroviral medicatio ns and also being followed closely for metabolic management. Her neuromuscular pain and carpopedal s pasms have already subsided at this time. Her latest chemistries showed a BUN of 8, sodium 141, potassium 4.1, chloride 110, CO2 of 21, glucose 83 and creatinine 0.9. Her calcium level now is 8.2, which has improved remarkably overnight, and y day was 7.1. The ionized calcium is 4.1. The parathyroid hormone level is 96 which is elevated and actually compensatory elevations for the marked hypocalcemia as noted thereof. Her cortisol lev el is 11.1 with a TSH of 2.70. The hormonal profile that have gotten back have all been normal and o ptimal as noted. So at this time, would recommend the patient be discharged on oral calcium and vitamin D supplementat ion with [id number] calcium supplements such as calcium 600 with vitamin D taken twice a day as noted. Would also discontinue now the IV calcium infusion as ordered. Will obtain serial chemistri es and supplement accordingly as needed. Will follow. Lorrie Fernandes MD cc: [id number] TT: 11/23/2016 12:48:32 Confirmation # [id number] Dictation # [id number] mn
--- NOTE | 2016-11-23 13:20 | CP.PCM.DIS ---
<Audra Lyons - Last Filed: 11/23/16 13:21> Provider - Provider Date of Admission: 11/22/16 15:18 Attending physician: Alberto Adorno MD Primary care physician: NO PRIMARY CARE PROVIDER Consults: ID: Dr. Coffey Endocrine: Dr. Fernandes Time Spent in preparation of Discharge (in minutes): 45 Diagnosis - Discharge Diagnosis (1) AIDS (acquired immunodeficiency syndrome), CD4 <=200 Status: Chronic (2) Hypophosphatemia Status: Acute Hospital Course - Lab Results Lab Results: Most Recent Lab Values WBC 4.1 10^3/ul (4.5-11.0) L D 11/23/16 05:00 RBC 3.96 10^6/uL (3.5-6.1) 11/23/16 05:00 Hgb 9.9 gm/dL (12.0-16.0) L 11/23/16 05:00 Hct 29.5 % (36.0-48.0) L 11/23/16 05:00 MCV 74.5 fL (80.0-105.0) L 11/23/16 05:00 MCH 25.0 pg (25.0-35.0) 11/23/16 05:00 MCHC 33.6 g/dl (31.0-37.0) 11/23/16 05:00 RDW 17.2 % (11.5-14.5) H 11/23/16 05:00 Plt Count 152 10^3/uL (120.0-450.0) 11/23/16 05:00 MPV 11.2 fl (7.0-11.0) H 11/23/16 05:00 Gran % 53.2 % (50.0-68.0) 11/23/16 05:00 Lymph % (Auto) 32.4 % (22.0-35.0) 11/23/16 05:00 [place] % (Auto) 6.4 % (1.0-6.0) H 11/23/16 05:00 Eos % (Auto) 7.8 % (1.5-5.0) H 11/23/16 05:00 Baso % (Auto) 0.2 % (0.0-3.0) 11/23/16 05:00 Gran # 2.17 (1.4-6.5) 11/23/16 05:00 Lymph # 1.3 (1.2-3.4) 11/23/16 05:00 [place] # 0.3 (0.1-0.6) 11/23/16 05:00 Eos # 0.3 (0.0-0.7) 11/23/16 05:00 Baso # 0.01 K/mm3 (0.0-2.0) 11/23/16 05:00 Neutrophils % (Manual) 36 % (50.0-70.0) L 11/21/16 19:20 Band Neutrophils % 4 % (0-2) H 11/21/16 19:20 Lymphocytes % (Manual) 53 % (22.0-35.0) H 11/21/16 19:20 Monocytes % (Manual) 5 % (1.0-6.0) 11/21/16 19:20 Eosinophils % (Manual) 2 % (0.0-3.0) 11/21/16 19:20 Platelet Evaluation Normal (NORMAL) 11/21/16 19:20 Sodium 141 mmol/L (132-148) 11/23/16 05:00 Potassium 4.1 mmol/L (3.6-5.0) 11/23/16 05:00 Chloride 110 mmol/L (98-107) H 11/23/16 05:00 Carbon Dioxide 21 mmol/L (21-33) 11/23/16 05:00 Anion Gap 14 (10-20) 11/23/16 05:00 BUN 8 mg/dL (7-21) 11/23/16 05:00 Creatinine 0.9 mg/dL (0.5-1.4) 11/23/16 05:00 Est GFR ( Amer) > 60 11/23/16 05:00 Est GFR (Non-Af Amer) > 60 11/23/16 05:00 Random Glucose 83 mg/dL (70-110) 11/23/16 05:00 Calcium 8.2 mg/dL (8.4-10.5) L 11/23/16 05:00 Ionized Calcium 4.1 mg/dL (4.80-5.60) L 11/22/16 09:00 Phosphorus 3.2 mg/dL (2.5-4.5) 11/23/16 05:00 Magnesium 1.8 mg/dL (1.7-2.2) 11/23/16 05:00 Iron 17 ug/dL (45-180) L 11/22/16 09:00 TIBC 317 ug/dL (265-497) 11/22/16 09:00 % Saturation 5 % (20-55) L 11/22/16 09:00 Ferritin 73.4 ng/mL 11/22/16 09:00 Total Bilirubin 0.8 mg/dL (0.2-1.3) 11/23/16 05:00 AST 81 U/L (15-39) H 11/23/16 05:00 ALT 46 U/L (7-56) 11/23/16 05:00 Alkaline Phosphatase 56 U/L (38-133) 11/23/16 05:00 Total Creatine Kinase 486 U/L (35-230) H 11/21/16 19:20 CK-MB (CK-2) 3.7 ng/mL (0.0-3.6) H 11/21/16 19:20 CK-MB (CK-2) % Cancelled 11/21/16 19:20 Troponin I < 0.01 ng/mL 11/21/16 19:20 Total Protein 7.6 g/dL (5.8-8.3) 11/23/16 05:00 Albumin 3.4 g/dL (3.0-4.8) 11/23/16 05:00 Globulin 4.2 gm/dL 11/23/16 05:00 Albumin/Globulin Ratio 0.8 (1.1-1.8) L 11/23/16 05:00 25-OH Vitamin D Total 34.2 NG/ML (30.0-100.0) 11/22/16 09:16 TSH 3rd Generation 2.70 mIU/mL (0.46-4.68) 11/22/16 07:00 PTH Intact Whole Molec 96 pg/mL (14-64) H 11/21/16 20:00 Cortisol AM Sample 11.1 ug/dL (4.46-22.7) 11/22/16 07:00 Urine Color Yellow (YELLOW) 11/21/16 20:00 Urine Appearance Clear (CLEAR) 11/21/16 20:00 Urine pH 6.0 (4.7-8.0) 11/21/16 20:00 Ur Specific [place] 1.010 (1.005-1.035) 11/21/16 20:00 Urine Protein 30 mg/dL (<30 mg/dL) H 11/21/16 20:00 Urine Glucose (UA) Negative mg/dL (NEGATIVE) 11/21/16 20:00 Urine Ketones Negative mg/dL (NEGATIVE) 11/21/16 20:00 Urine Blood Negative (NEGATIVE) 11/21/16 20:00 Urine Nitrate Negative (NEGATIVE) 11/21/16 20:00 Urine Bilirubin Negative (NEGATIVE) 11/21/16 20:00 Urine Urobilinogen 0.2 E.U./dL (<1 E.U./dL) 11/21/16 20:00 Ur Leukocyte Esterase Negative Jessica/uL (NEGATIVE) 11/21/16 20:00 Urine RBC 0 - 2 /hpf (0-2) 11/21/16 20:00 Urine WBC 1 - 3 /hpf (0-6) 11/21/16 20:00 Ur Epithelial Cells 1 - 3 /hpf (0-5) 11/21/16 20:00 Urine Bacteria Mod (NEG) 11/21/16 20:00 Ur Random Creatinine 130 mg/dL 11/21/16 22:55 Ur Random Sodium 53 meq/L 11/21/16 20:55 Ur Random Potassium 15.9 meq/L 11/21/16 20:55 Ur Random Calcium < 1.0 mg/dL 11/21/16 22:55 Absolute Lymphs (Flow) 1200 Cells/mcL (850-3900) 11/22/16 09:00 % CD3 Cells 68 Percent (57-85) 11/22/16 09:00 Absolute CD3 Count 826 Cells/mcL (840-3060) L 11/22/16 09:00 % CD3-/CD16+/CD56+ 10 Percent (4-25) 11/22/16 09:00 % CD4 Cells 4 Percent (30-61) L 11/22/16 09:00 Absolute CD4 Count 45 Cells/mcL (490-1740) L 11/22/16 09:00 T-Help/Suppress Ratio 0.06 Ratio (0.86-5.00) L 11/22/16 09:00 % CD8 Cells 59 Percent (12-42) H 11/22/16 09:00 Absolute CD8 Count 734 Cells/mcL (180-1170) 11/22/16 09:00 Absolute CD16/CD56 Count 125 Cells/mcL (70-760) 11/22/16 09:00 % CD19 Cells 21 Percent (6-29) 11/22/16 09:00 Absolute CD19 Count 257 Cells/mcL (110-660) 11/22/16 09:00 RPR Nonreactive (NONREACTIVE) 11/22/16 09:00 Cryptococcus Ag Screen Not detected (Not Detected) 11/22/16 09:16 - Hospital Course Hospital Course: 41 year old female with a PMH of HIV on ART medication but not compliant who presents to [facility] on 11/21/16 with complaints of tingling around her mouth, hands , and feet. Patient is seen with at bedside. Patient states that she was working earlier today and began to have symptoms first in the feet, then it started to spread. Patient denies ever having this again but states that lately she has complained of some tingling and numbness in her extremities.. Patient felt numbness and tingling all over and it went up to her head and her mouth. Patient states that she felt like she couldn't open her eyes and her hands were clamped down in a point. Denies any dizziness, diarrhea , constipation, dysuria, palpitations, shortness of breath, headache, weakness, or any other symptoms. Patient did not note any alleviating or aggravating factors. Upon admission, patient's calcium was found to be 4.8 and phosphate was 1.4. Patient was also found to be leukopenic at 2.3. She also had QTc prolongation noted on EKG. ID was consulted and patient was started on home HIV medications. Her home medication zithromax was placed on hold due to QT prolongation and Bactrim was placed on hold due to leukopenia and acute kidney injury. Patient was started on Mepron instead. Endocrinology was consulted. Patient had workup for hypocalcemia including PTH, ionized calcium, cortisol level, vitamin D and urine calcium. Patient's PTH was high (96) which means that her body is compensating for the low calcium. Vitamin D level was within normal limits. The cause of the hypocalcemia was not determined. During the stay, patient was supplemented calcium through IV and PO route. Patient also had all her other electrolytes corrected. Patient had CD4 count tested. Absolute CD4 count is 45. The results of the CD4 count came after patient had left. Patient was called and the results were discussed with her. She was again told to follow up with her PMD for HAART therapy and to continue taking her medications as prescribed. Patient is to follow up with PMD upon discharge. Patient is to continue taking calcium 600 mg with vitamin D BID. Patient is discharged on the following medications: Mepron 750 mg po BID, Calcium/vit D supplements, Tivicay 50 mg po QD, Loperamide 2 mg po qd prn, Kaletra 2 tab po bid. Patient's home medication zithromax was stopped due to QT prolongation. Her home medication Bactrim was also stopped due to acute kidney injury and leukopenia. - Date & Time of H&P Date of H&P: 11/23/16 Time of H&P: 13:22 Discharge Exam - Head Exam Head Exam: NORMAL INSPECTION - Eye Exam Eye Exam: EOMI - ENT Exam ENT Exam: Mucous Membranes Moist - Respiratory Exam Respiratory Exam: Clear to PA & Lateral, NORMAL BREATHING PATTERN. absent: Rales, Rhonchi, Wheezes - Cardiovascular Exam Cardiovascular Exam: REGULAR RHYTHM, +S1, +S2. absent: Diastolic murmur, Gallop , Rubs, Systolic Murmur - GI/Abdominal Exam GI & Abdominal Exam: Normal Bowel Sounds, Soft. absent: Distended, Firm, Rigid , Tenderness - Extremities Exam Additional comments: no pedal edema or tenderness - Neurological Exam Neurological exam: Alert, Oriented x3 - Psychiatric Exam Psychiatric exam: Normal Affect, Normal Mood - Skin Skin Exam: Dry, Intact, Normal Color, Warm Discharge Plan - Discharge Medications Prescriptions: Atovaquone [Mepron] 750 mg PO BID #30 packet Dolutegravir Sodium [Tivicay] 50 mg PO DAILY #30 Lopinavir/Ritonavir [Kaletra 200-50 mg] 2 tab PO BID #30 - Follow Up Plan Condition: FAIR Disposition: HOME/ ROUTINE Instructions: Human Immunodeficiency Virus and Acquired Immune Deficiency Syndrome (ED), Hypocalcemia (DC) Additional Instructions: Patient is to follow up with PMD upon discharge. Patient is to continue taking calcium 600 mg with vitamin D BID. Nursing Follow up with your primary doctor ,call for an appointment. Some of your prescriptions were called in to your [facility] pharmacy make sure you pick them up. If you begin to experience weakness, chest pain, shortness of breath, symptoms return or any changes return to the emergency room or call 911. See care notes provided for further instructions. Referrals: PCP,NO [Primary Care Provider] - <Alberto Adorno - Last Filed: 11/23/16 13:59> Provider - Provider Date of Admission: 11/22/16 15:18 Attending physician: Alberto Adorno MD Primary care physician: NO PRIMARY CARE PROVIDER Hospital Course - Lab Results Lab Results: Most Recent Lab Values WBC 4.1 10^3/ul (4.5-11.0) L D 11/23/16 05:00 RBC 3.96 10^6/uL (3.5-6.1) 11/23/16 05:00 Hgb 9.9 gm/dL (12.0-16.0) L 11/23/16 05:00 Hct 29.5 % (36.0-48.0) L 11/23/16 05:00 MCV 74.5 fL (80.0-105.0) L 11/23/16 05:00 MCH 25.0 pg (25.0-35.0) 11/23/16 05:00 MCHC 33.6 g/dl (31.0-37.0) 11/23/16 05:00 RDW 17.2 % (11.5-14.5) H 11/23/16 05:00 Plt Count 152 10^3/uL (120.0-450.0) 11/23/16 05:00 MPV 11.2 fl (7.0-11.0) H 11/23/16 05:00 Gran % 53.2 % (50.0-68.0) 11/23/16 05:00 Lymph % (Auto) 32.4 % (22.0-35.0) 11/23/16 05:00 [place] % (Auto) 6.4 % (1.0-6.0) H 11/23/16 05:00 Eos % (Auto) 7.8 % (1.5-5.0) H 11/23/16 05:00 Baso % (Auto) 0.2 % (0.0-3.0) 11/23/16 05:00 Gran # 2.17 (1.4-6.5) 11/23/16 05:00 Lymph # 1.3 (1.2-3.4) 11/23/16 05:00 [place] # 0.3 (0.1-0.6) 11/23/16 05:00 Eos # 0.3 (0.0-0.7) 11/23/16 05:00 Baso # 0.01 K/mm3 (0.0-2.0) 11/23/16 05:00 Neutrophils % (Manual) 36 % (50.0-70.0) L 11/21/16 19:20 Band Neutrophils % 4 % (0-2) H 11/21/16 19:20 Lymphocytes % (Manual) 53 % (22.0-35.0) H 11/21/16 19:20 Monocytes % (Manual) 5 % (1.0-6.0) 11/21/16 19:20 Eosinophils % (Manual) 2 % (0.0-3.0) 11/21/16 19:20 Platelet Evaluation Normal (NORMAL) 11/21/16 19:20 Sodium 141 mmol/L (132-148) 11/23/16 05:00 Potassium 4.1 mmol/L (3.6-5.0) 11/23/16 05:00 Chloride 110 mmol/L (98-107) H 11/23/16 05:00 Carbon Dioxide 21 mmol/L (21-33) 11/23/16 05:00 Anion Gap 14 (10-20) 11/23/16 05:00 BUN 8 mg/dL (7-21) 11/23/16 05:00 Creatinine 0.9 mg/dL (0.5-1.4) 11/23/16 05:00 Est GFR ( Amer) > 60 11/23/16 05:00 Est GFR (Non-Af Amer) > 60 11/23/16 05:00 Random Glucose 83 mg/dL (70-110) 11/23/16 05:00 Calcium 8.2 mg/dL (8.4-10.5) L 11/23/16 05:00 Ionized Calcium 4.1 mg/dL (4.80-5.60) L 11/22/16 09:00 Phosphorus 3.2 mg/dL (2.5-4.5) 11/23/16 05:00 Magnesium 1.8 mg/dL (1.7-2.2) 11/23/16 05:00 Iron 17 ug/dL (45-180) L 11/22/16 09:00 TIBC 317 ug/dL (265-497) 11/22/16 09:00 % Saturation 5 % (20-55) L 11/22/16 09:00 Ferritin 73.4 ng/mL 11/22/16 09:00 Total Bilirubin 0.8 mg/dL (0.2-1.3) 11/23/16 05:00 AST 81 U/L (15-39) H 11/23/16 05:00 ALT 46 U/L (7-56) 11/23/16 05:00 Alkaline Phosphatase 56 U/L (38-133) 11/23/16 05:00 Total Creatine Kinase 486 U/L (35-230) H 11/21/16 19:20 CK-MB (CK-2) 3.7 ng/mL (0.0-3.6) H 11/21/16 19:20 CK-MB (CK-2) % Cancelled 11/21/16 19:20 Troponin I < 0.01 ng/mL 11/21/16 19:20 Total Protein 7.6 g/dL (5.8-8.3) 11/23/16 05:00 Albumin 3.4 g/dL (3.0-4.8) 11/23/16 05:00 Globulin 4.2 gm/dL 11/23/16 05:00 Albumin/Globulin Ratio 0.8 (1.1-1.8) L 11/23/16 05:00 25-OH Vitamin D Total 34.2 NG/ML (30.0-100.0) 11/22/16 09:16 TSH 3rd Generation 2.70 mIU/mL (0.46-4.68) 11/22/16 07:00 PTH Intact Whole Molec 96 pg/mL (14-64) H 11/21/16 20:00 Cortisol AM Sample 11.1 ug/dL (4.46-22.7) 11/22/16 07:00 Urine Color Yellow (YELLOW) 11/21/16 20:00 Urine Appearance Clear (CLEAR) 11/21/16 20:00 Urine pH 6.0 (4.7-8.0) 11/21/16 20:00 Ur Specific [place] 1.010 (1.005-1.035) 11/21/16 20:00 Urine Protein 30 mg/dL (<30 mg/dL) H 11/21/16 20:00 Urine Glucose (UA) Negative mg/dL (NEGATIVE) 11/21/16 20:00 Urine Ketones Negative mg/dL (NEGATIVE) 11/21/16 20:00 Urine Blood Negative (NEGATIVE) 11/21/16 20:00 Urine Nitrate Negative (NEGATIVE) 11/21/16 20:00 Urine Bilirubin Negative (NEGATIVE) 11/21/16 20:00 Urine Urobilinogen 0.2 E.U./dL (<1 E.U./dL) 11/21/16 20:00 Ur Leukocyte Esterase Negative Jessica/uL (NEGATIVE) 11/21/16 20:00 Urine RBC 0 - 2 /hpf (0-2) 11/21/16 20:00 Urine WBC 1 - 3 /hpf (0-6) 11/21/16 20:00 Ur Epithelial Cells 1 - 3 /hpf (0-5) 11/21/16 20:00 Urine Bacteria Mod (NEG) 11/21/16 20:00 Ur Random Creatinine 130 mg/dL 11/21/16 22:55 Ur Random Sodium 53 meq/L 11/21/16 20:55 Ur Random Potassium 15.9 meq/L 11/21/16 20:55 Ur Random Calcium < 1.0 mg/dL 11/21/16 22:55 Absolute Lymphs (Flow) 1200 Cells/mcL (850-3900) 11/22/16 09:00 % CD3 Cells 68 Percent (57-85) 11/22/16 09:00 Absolute CD3 Count 826 Cells/mcL (840-3060) L 11/22/16 09:00 % CD3-/CD16+/CD56+ 10 Percent (4-25) 11/22/16 09:00 % CD4 Cells 4 Percent (30-61) L 11/22/16 09:00 Absolute CD4 Count 45 Cells/mcL (490-1740) L 11/22/16 09:00 T-Help/Suppress Ratio 0.06 Ratio (0.86-5.00) L 11/22/16 09:00 % CD8 Cells 59 Percent (12-42) H 11/22/16 09:00 Absolute CD8 Count 734 Cells/mcL (180-1170) 11/22/16 09:00 Absolute CD16/CD56 Count 125 Cells/mcL (70-760) 11/22/16 09:00 % CD19 Cells 21 Percent (6-29) 11/22/16 09:00 Absolute CD19 Count 257 Cells/mcL (110-660) 11/22/16 09:00 RPR Nonreactive (NONREACTIVE) 11/22/16 09:00 Cryptococcus Ag Screen Not detected (Not Detected) 11/22/16 09:16 Attending/Attestation - Attestation I have personally seen and examined this patient.: Yes I have fully participated in the care of the patient.: Yes I have reviewed all pertinent clinical information, including history, physical exam and plan: Yes Notes (Text): 11/23/16 13:57 Attending note: Patient seen and examined with the resident. Patient is a 41-year-old female with a history of HIV over 15 years/sexually acquired on PCP prophylaxis noncompliance with follow-up as admitted with tingling and numbness. The patient was found to have profoundly hypocalcemic, hypophosphatemic and hypomagnesemic. treated with IV calcium, magnesium, phosphorus supplementation given . Monitor closely in telemetry. EKG did not show any QT prolongation . Endocrinology evaluation with Dr. Fernandes appreciated. Prescription for culture and vitamin D given. Upon discharge patient will follow-up with Dr. Bourne. Medication compliance insisted. ID evaluation appreciated. CD4 count is 45. Patient is clinically stable. Tolerating diet. Dietitian evaluation appreciated. Diagnosis; Hypocalcemia Hypomagnesemia Hypophosphatemia HIV Noncompliance with medication 11/23/16 13:58 11/23/16 13:58
== END 2016-11-23 13:30 | disposition home or self-care (01) | DRG 640 ==
LOC: ED 18:09 → ERH 21:30 → 2RNO 23:25 → OBSVTOIN 11-22 15:18
PROVIDERS: ADMIT Internal Medicine; ATTEND Internal Medicine
DX: E83.51 Hypocalcemia (principal); E83.39 Other disorders of phosphorus metabolism; E83.42 Hypomagnesemia; B20 Human immunodeficiency virus [HIV] disease; R29.0 Tetany; D64.9 Anemia, unspecified; R20.0 Anesthesia of skin; D72.819 Decreased white blood cell count, unspecified; Z91.14 Patient's other noncompliance with medication regimen; Z83.3 Family history of diabetes mellitus; Z82.49 Family history of ischemic heart disease and other diseases of the circulatory system

== ENCOUNTER 2017-12-28 19:59 | Emergency (ER) | payer BC ==
[2017-12-28 20:33] VITALS: O2SAT 100; BMI 21.2
--- NOTE | 2017-12-28 21:14 | ED PDOC ---
Arrival/HPI - General Chief Complaint: Abnormal Skin Integrity Time Seen by Provider: 12/28/17 20:58 Historian: Patient - History of Present Illness Narrative History of Present Illness (Text): 12/28/17 21:25 42-year-old female presents today with itchy rash to the back. Patient states rash developed yesterday. Patient denies fevers or chills. Denies difficulty breathing or swallowing. Patient denies pain. Patient denies chest pain or shortness of breath. Patient denies dizziness or weakness. Patient denies anyone at home with similar symptoms. Patient states the rash is pruritic. No medications have been taken for itch. No other complaints Past Medical History - Provider Review Nursing Documentation Reviewed: Yes - Travel History Have you recently traveled outside [place] w/in the past 3 mons?: No - Past History Past History: No Previous - Infectious Disease Hx of Infectious Diseases: None - Tetanus Immunization Tetanus Immunization: Up to Date, Unknown - Past Medical History Past Medical History: No Previous - Cardiac Hx Cardiac Disorders: No - Pulmonary Hx Respiratory Disorders: No - Neurological Hx Neurological Disorder: No - HEENT Hx HEENT Disorder: No - Renal Hx Renal Disorder: No - Endocrine/Metabolic Hx Endocrine Disorders: No - Hematological/Oncological Hx Anemia: Yes - Integumentary Hx Dermatological Disorder: No - Musculoskeletal/Rheumatological Hx Musculoskeletal Disorders: No Hx Falls: No - Gastrointestinal Hx Gastrointestinal Disorders: No - Genitourinary/Gynecological Hx Genitourinary Disorders: No - Psychiatric Hx Depression: No Hx Substance Use: No - Past Surgical History Past Surgical History: No Previous - Surgical History Hx Section: Yes - Anesthesia Hx Anesthesia: No - Suicidal Assessment Feels Threatened In Home Enviroment: No Family/Social History - Physician Review Nursing Documentation Reviewed: Yes Family/Social History: Unknown Family HX Smoking Status: Never Smoked Hx Alcohol Use: No Hx Substance Use: No Hx Substance Use Treatment: No Allergies/Home Meds Allergies/Adverse Reactions: Allergies No Known Allergies Allergy (Verified 02/04/17 05:31) Review of Systems - Review of Systems Constitutional: absent: Fatigue, Fevers Respiratory: absent: SOB, Cough Cardiovascular: absent: Chest Pain, Palpitations Gastrointestinal: absent: Abdominal Pain, Nausea, Vomiting Genitourinary Female: absent: Dysuria Musculoskeletal: absent: Arthralgias Skin: Rash, Pruritis Neurological: absent: Headache, Dizziness Psychiatric: absent: Anxiety, Depression Physical Exam Vital Signs Reviewed: Yes Vital Signs Temp Pulse Resp BP Pulse Ox 12/28/17 21:54 98.2 F 72 17 124/72 100 12/28/17 20:32 98.5 F 70 18 127/89 100 Temperature: Afebrile Blood Pressure: Normal Pulse: Regular Respiratory Rate: Normal Appearance: Positive for: Well-Appearing, Non-Toxic, Comfortable Pain Distress: None Mental Status: Positive for: Alert and Oriented X 3 - Systems Exam Head: Present: Atraumatic Mouth: Present: Moist Mucous Membranes Neck: Present: Normal Range of Motion Respiratory/Chest: Present: Clear to Auscultation, Good Air Exchange. No: Respiratory Distress, Accessory Muscle Use Cardiovascular: Present: Regular Rate and Rhythm, Normal S1, S2. No: Murmurs Abdomen: No: Tenderness Upper Extremity: Present: Normal ROM Lower Extremity: Present: Normal ROM Neurological: Present: GCS=15, Speech Normal Skin: Present: Warm, Dry, Rashes (there are multipled raised plaques of erythema ; non tender; blanching, located to right and left lower back and left buttock cheek.), Normal Color Psychiatric: Present: Alert, Oriented x 3 Medical Decision Making ED Course and Treatment: 12/28/17 21:27 Patient is nontoxic well-appearing in no distress with stable vital signs no angioedema. Lungs are clear to auscultation bilaterally there is no wheezing noted. The airway is patent benadryl PO I advised taking Benadryl every 6 hours as needed for itch. Advised patient to follow up with primary care physician within the next 2 days and return if symptoms worsen persist or if new symptoms develop. Patient verbalizes understanding of discharge instructions and need for immediate followup. all aspects of this case were discussed the attending of record. Impression : hives Benadryl every 6 hours as needed for itch Pepcid one tablet daily Follow up with the primary care physician tomorrow. Return if symptoms worsen persist or if new symptoms develop: Shortness of breath, feeling of throat closing, difficulty speaking or any other concerning symptoms develop - Medication Orders Current Medication Orders: Discontinued Medications Diphenhydramine HCl (Benadryl) 25 mg PO ONCE ONE Stop: 12/28/17 21:10 Last Admin: 12/28/17 21:35 Dose: 25 mg Disposition/Present on Arrival - Present on Arrival Any Indicators Present on Arrival: No History of DVT/PE: No History of Uncontrolled Diabetes: No Urinary Catheter: No History of Decub. Ulcer: No History Surgical Site Infection Following: None - Disposition Have Diagnosis and Disposition been Completed?: Yes Diagnosis: Hives Disposition: HOME/ ROUTINE Disposition Time: 21:10 Patient Plan: Discharge Condition: GOOD Discharge Instructions (ExitCare): Hives (DC) Additional Instructions: Benadryl every 6 hours as needed for itch Pepcid one tablet daily Follow up with the primary care physician tomorrow Follow up with the senior net software developer within the next 2 days. Return if symptoms worsen persist or if new symptoms develop: Shortness of breath, feeling of throat closing, difficulty speaking or any other concerning symptoms develop Prescriptions: DiphenhydrAMINE [Benadryl] 25 mg PO Q6H #20 cap Famotidine [Pepcid] 20 mg PO DAILY #30 tab Referrals: Melanie Kaur MD [Staff Provider] - Follow up with primary Ben Tinajero MD [Staff Provider] - Follow up with primary Forms: [employer] (Ecuadorean)
[2017-12-28 21:54] VITALS: BP 124/72; PULSE 72; RESP 17; TEMP 98.2
== END 2017-12-28 21:54 | disposition home or self-care (01) ==
LOC: ED 19:59
DX: L50.9 Urticaria, unspecified (principal)